=== PATIENT | male | born 1955 | race Caucasian/White ===

== ENCOUNTER 2017-07-07 14:44 | Observation (INO) | payer OTHER ==
[~2017-07-07] VITALS: Ht 175.3 cm; Wt 84.1 kg
[2017-07-07] VITALS (8 sets, daily range): BP systolic 122–175; BP diastolic 66–83; PULSE 53–74; RESP 16–18; TEMP 97.8–98.7; O2SAT 98–99
[~2017-07-07 14:44] MED LIST: ASPI81 PO; ATOR40TA49 PO; KETO2%T TOP; METO25 PO; VENTAER INH
[2017-07-07 15:45] LABS: AUTOMATED NEUTROPHIL # 5.5 TH/MM3 (1.8-7.7); BASOPHIL % 0.6 % (0.0-2.0); EOSINOPHIL # 0.2 TH/MM3 (0-0.4); EOSINOPHIL % 2.7 % (0.0-4.0); HEMATOCRIT 42.8 % (39.0-51.0); HEMOGLOBIN 14.4 GM/DL (13.0-17.0); LYMPH % 22.7 % (9.0-44.0); LYMPHOCYTE # 1.9 TH/MM3 (1.0-4.8); MEAN CELL VOLUME 95.4 FL (80.0-100.0); MEAN CORPUSCULAR HGB CONC 33.5 % (32.0-36.0); MEAN PLATELET VOLUME 7.8 FL (7.0-11.0); MONO % 8.7 % (0.0-8.0); MONOCYTE # 0.7 TH/MM3 (0-0.9); NEUT % 65.3 % (16.0-70.0); PLATELET COUNT 269 TH/MM3 (150-450); RED BLOOD COUNT 4.49 MIL/MM3 (4.50-5.90); RED CELL DISTRIBUTION WIDTH 13.7 % (11.6-17.2); WHITE BLOOD COUNT 8.4 TH/MM3 (4.0-11.0)
--- NOTE | 2017-07-07 15:50 | RADRPT ---
EXAM DATE/TIME: 07/07/2017 15:31 [facility] COMPARISON: No previous studies available for comparison. INDICATIONS : Left sided chest pain started this morning MEDICAL HISTORY : Myocardial infarction. MD 10 years ago SURGICAL HISTORY : None. ENCOUNTER: Initial ACUITY: 1 day PAIN SCORE: 8/10 LOCATION: Bilateral chest FINDINGS: PA and lateral views of the chest demonstrate the lungs to be symmetrically aerated without evidence of mass, infiltrate or effusion. The cardiomediastinal contours are unremarkable. Osseous structure s are intact. CONCLUSION: 1. No acute cardiopulmonary disease. Eitan Donis MD on July 07, 2017 at 15:48 Board Certified Radiologist. This report was verified electronically.
[2017-07-07 15:54] LABS: PROTHROMBIN TIME - PATIENT 9.7 SEC (9.8-11.6)
[2017-07-07 16:03] LABS: BICARBONATE 28.2 MEQ/L (21.0-32.0); BLOOD UREA NITROGEN 20 MG/DL (7-18); CALCIUM 9.2 MG/DL (8.5-10.1); CHLORIDE 105 MEQ/L (98-107); CREATININE 1.17 MG/DL (0.60-1.30); GLOMERULAR FILTRATION RATE 63 ML/MIN (>89); GLUCOSE,RANDOM 108 MG/DL (74-106); MAGNESIUM 2.4 MG/DL (1.5-2.5); SODIUM (NA) 142 MEQ/L (136-145)
[2017-07-07 16:07] LABS: TROPONIN I LESS THAN 0.02 NG/ML (0.02-0.05)
[2017-07-07] MEDS ORDERED: METO25TA3 PO (18:17)
[2017-07-07] MEDS ORDERED: ASPI-516 PO (18:17)
[2017-07-07] MEDS ORDERED: ASPIRIN 325 MG TAB PO ONE (19:00)
--- NOTE | 2017-07-07 19:01 | PD ---
HPI Chief Complaint: Chest Pain Time Seen by Provider: 18:49 Travel History International Travel<30 days: No Contact w/Intl Traveler<30days: No Traveled to known affect area: No History of Present Illness HPI 61-year-old male complains of chest pain. Patient states that the chest pain started this morning. Patient states that the pain aching pain and sharp pain started on the left chest with radiation the left shoulder and left neck and left upper back. Patient denies any palpitation nausea diaphoresis. Patient denies any coughing congestion fever chills. Patient has history of CAD status post AL with stent placement 10 years ago. Patient has history hypertension and hyperlipidemia. Patient denies history diabetes. Patient quit smoking 9 years ago. Patient denies family history of heart disease. On a scale of 1-10 the pain is a 5. Patient complains of shortness of breath with chest pain. PFSH Past Medical History Arthritis: No Asthma: No Autoimmune Disease: No Blood Disorders: No Anxiety: No Depression: No Heart Rhythm Problems: No Cancer: No Cardiovascular Problems: No High Cholesterol: Yes Chemotherapy: No Chest Pain: No Congestive Heart Failure: No COPD: No Cerebrovascular Accident: No Diabetes: No Diminished Hearing: No Endocrine: No Gastrointestinal Disorders: Yes GERD: Yes Glaucoma: No Genitourinary: No Headaches: No Hepatitis: No Hiatal Hernia: No Hypertension: Yes Immune Disorder: No Kidney Stones: No Musculoskeletal: No Neurologic: No Psychiatric: No Reproductive: No Respiratory: No Migraines: No Myocardial Infarction: No Radiation Therapy: No Renal Failure: No Seizures: No Sickle Cell Disease: No Sleep Apnea: No Thyroid Disease: No Ulcer: No Tetanus Vaccination: > 5 Years Influenza Vaccination: No Past Surgical History Abdominal Surgery: No AICD: No Appendectomy: No Arteriovenous Shunt: No Cardiac Surgery: Yes (stent ) Cholecystectomy: No Ear Surgery: No Endocrine Surgery: No Eye Surgery: No Genitourinary Surgery: Yes (HEMORROIDS) Gynecologic Surgery: No Insulin Pump: No Joint Replacement: No Oral Surgery: No Pacemaker: No Thoracic Surgery: No Other Surgery: Yes (DEVIATED SEPTUM AT AGE 21) Social History Alcohol Use: Yes (WINE OR BEER DAILY) Tobacco Use: No (quit 4 years ago) Substance Use: No Allergies-Medications (Allergen,Severity, Reaction): Coded Allergies: No Known Allergies (Verified Adverse Reaction, Unknown, 07/07/17) Reported Meds & Prescriptions Reported Meds & Active Scripts Active Reported Aspirin 81 Mg Chew 81 Mg PO DAILY Metoprolol Tartrate 25 Mg Tab 25 Mg PO BID Review of Systems General / Constitutional: No: Fever Eyes: No: Visual changes HENT: No: Headaches Cardiovascular: Positive: Chest Pain or Discomfort Respiratory: Positive: Shortness of Breath Gastrointestinal: No: Abdominal Pain Genitourinary: No: Dysuria Musculoskeletal: No: Pain Skin: No Rash Neurologic: No: Weakness Psychiatric: No: Depression Endocrine: No: Polydipsia Hematologic/Lymphatic: No: Easy Bruising Physical Exam Narrative GENERAL: Well-nourished, well-developed patient. SKIN: Focused skin assessment warm/dry. HEAD: Normocephalic. EYES: No scleral icterus. No injection or drainage. NECK: Supple, trachea midline. No JVD or lymphadenopathy. CARDIOVASCULAR: Regular rate and rhythm without murmurs, gallops, or rubs. RESPIRATORY: Breath sounds equal bilaterally. No accessory muscle use. GASTROINTESTINAL: Abdomen soft, non-tender, nondistended. MUSCULOSKELETAL: No cyanosis, or edema. BACK: Nontender without obvious deformity. No CVA tenderness. Neurologic exam normal. Data Data Last Documented VS Vital Signs Date Time Temp Pulse Resp B/P (MAP) Pulse Ox O2 Delivery O2 Flow Rate FiO2 07/07/17 18:22 97.8 60 17 175/66 (102) 99 Room Air Orders Orders Electrocardiogram (07/07/17 14:55) Basic Metabolic Panel (Bmp) (07/07/17 14:55) Ckmb (Isoenzyme) Profile (07/07/17 14:55) Complete Blood Count With Diff (07/07/17 14:55) Magnesium (Mg) (07/07/17 14:55) Prothrombin Time / Inr (Pt) (07/07/17 14:55) Act Partial Throm Time (Ptt) (07/07/17 14:55) Troponin I (07/07/17 14:55) Chest, Pa & Lat (07/07/17 14:55) Labs Laboratory Tests Test 07/07/17 15:10 White Blood Count 8.4 TH/MM3 Red Blood Count 4.49 MIL/MM3 Hemoglobin 14.4 GM/DL Hematocrit 42.8 % Mean Corpuscular Volume 95.4 FL Mean Corpuscular Hemoglobin 32.0 PG Mean Corpuscular Hemoglobin Concent 33.5 % Red Cell Distribution Width 13.7 % Platelet Count 269 TH/MM3 Mean Platelet Volume 7.8 FL Neutrophils (%) (Auto) 65.3 % Lymphocytes (%) (Auto) 22.7 % Monocytes (%) (Auto) 8.7 % Eosinophils (%) (Auto) 2.7 % Basophils (%) (Auto) 0.6 % Neutrophils # (Auto) 5.5 TH/MM3 Lymphocytes # (Auto) 1.9 TH/MM3 Monocytes # (Auto) 0.7 TH/MM3 Eosinophils # (Auto) 0.2 TH/MM3 Basophils # (Auto) 0.0 TH/MM3 CBC Comment DIFF FINAL Differential Comment Prothrombin Time 9.7 SEC Prothromb Time International Ratio 1.0 RATIO Activated Partial Thromboplast Time 25.2 SEC Blood Urea Nitrogen 20 MG/DL Creatinine 1.17 MG/DL Random Glucose 108 MG/DL Calcium Level 9.2 MG/DL Magnesium Level 2.4 MG/DL Sodium Level 142 MEQ/L Potassium Level 3.7 MEQ/L Chloride Level 105 MEQ/L Carbon Dioxide Level 28.2 MEQ/L Anion Gap 9 MEQ/L Estimat Glomerular Filtration Rate 63 ML/MIN Total Creatine Kinase 84 U/L Troponin I LESS THAN 0.02 NG/ML MDM Medical Decision Making Medical Screen Exam Complete: Yes Emergency Medical Condition: Yes Interpretation(s) EKG shows sinus rhythm nonspecific ST-T wave change. Last Impressions Chest X-Ray 07/07/17 1455 Signed Impressions: Service Date/Time: Friday, July 07, 2017 15:31 - CONCLUSION: 1. No acute cardiopulmonary disease. Eitan Donis MD 1900 PM. Cardiac enzymes are normal. Differential Diagnosis Differential diagnosis including muscular skeletal, angina, AL, PE, pneumothorax. Narrative Course 61-year-old male with chest pain. Aspirin 325 mg p.o. given. Patient will be admitted to the chest pain center. Diagnosis Primary Impression: Chest pain Qualified Codes: R07.9 - Chest pain, unspecified Admitting Information Admitting Physician Requests: Jason Ley MD Jul 07, 2017 19:01
[2017-07-07] MEDS ORDERED: SODIUM CHLORIDE 0.9% FLUSH 10 ML FLUSH IV FLUSH PRN (19:15)
[2017-07-07] MEDS ORDERED: ACETAMINOPHEN 500 MG CPLT PO PRN (19:15)
[2017-07-07] MEDS ORDERED: METOPROLOL TARTRATE 25 MG TAB PO ONE (19:15)
[2017-07-07] MEDS ORDERED: ONDANSETRON HCL 4 MG/2 ML VIAL IV PUSH PRN (19:15)
[2017-07-07] MEDS ORDERED: KETOROLAC TROMETHAMINE 30 MG/ML (IVP) VIAL IV PUSH ONE (19:15)
[2017-07-07 19:53] LABS: TROPONIN I LESS THAN 0.02 NG/ML (0.02-0.05)
--- NOTE | 2017-07-07 20:14 | EKG ---
Date Performed: 07/07/2017 Time Performed: 15:09:41 PTAGE: 61 years EKG: Sinus rhythm SEPTAL MYOCARDIAL INFARCTION ABNORMAL ECG No significant change from prior electrocardiogram. PREVIOUS TRACING : 03/29/2010 14.29 DOCTOR: Elian Carcamo Interpretating Date/Time 07/07/2017 20:13:01
[2017-07-07] MEDS ORDERED: SODIUM CHLORIDE 0.9% FLUSH 10 ML FLUSH IV FLUSH SCH (21:00)
[2017-07-07 23:28] LABS: TROPONIN I LESS THAN 0.02 NG/ML (0.02-0.05)
[2017-07-08 00:55] VITALS: BP 125/66; PULSE 54; RESP 16; TEMP 98.3; O2SAT 97
--- NOTE | 2017-07-08 04:49 | EKG ---
Date Performed: 07/07/2017 Time Performed: 19:18:27 PTAGE: 61 years EKG: SINUS BRADYCARDIA POSSIBLE SEPTAL MYOCARDIAL INFARCTION BORDERLINE ECG Compared to prior el ectrocardiogram, axis has rotated. PREVIOUS TRACING : 07/07/2017 15.09 DOCTOR: Elian Carcamo Interpretating Date/Time 07/08/2017 04:48:14
[2017-07-08 05:08] VITALS: BP 108/58; PULSE 61; RESP 16; TEMP 97.5; O2SAT 93
[2017-07-08 07:05] VITALS: PULSE 55
[2017-07-08 08:30] VITALS: BP 146/75; PULSE 60; RESP 18; TEMP 97.6; O2SAT 95
--- NOTE | 2017-07-08 17:05 | EKG ---
Date Performed: 07/07/2017 Time Performed: 22:30:14 PTAGE: 61 years EKG: SINUS BRADYCARDIA LOW QRS VOLTAGE IN PRECORDIAL LEADS SEPTAL MYOCARDIAL INFARCTION ABNORMAL ECG Since PREVIOUS TRACING , no significant change noted PREVIOUS TRACIN07/07/2017 19.18 DOCTOR: Shaista Blackwood Interpretating Date/Time 07/08/2017 17:05:17
== END 2017-07-08 10:00 | disposition left against medical advice (07) ==
LOC: NEPE 14:44 → NEDH 19:19 → NEPGCP 20:07
PROVIDERS: ADMIT Internal Medicine Cardiovascular Disease; ATTEND Internal Medicine Cardiovascular Disease
DX: R07.9 Chest pain, unspecified (principal); R00.1 Bradycardia, unspecified; R94.31 Abnormal electrocardiogram [ECG] [EKG]; I10 Essential (primary) hypertension; I25.2 Old myocardial infarction; E78.00 Pure hypercholesterolemia, unspecified; K21.9 Gastro-esophageal reflux disease without esophagitis; Z79.82 Long term (current) use of aspirin; Z87.891 Personal history of nicotine dependence; Z95.5 Presence of coronary angioplasty implant and graft
CPT/HCPCS: 71046; 80048; 82550; 83735; 84484; 85025; 85610; 85730; 93005; 96374; 99285; G0378; J1885

== ENCOUNTER 2017-08-13 20:39 | Emergency (ER) | payer OTHER ==
[~2017-08-13 20:39] MED LIST changes: +ASPI-516 PO; -ASPI81 PO; -ATOR40TA49 PO; -KETO2%T TOP; -METO25 PO; +METO25TA3 PO; -VENTAER INH
[2017-08-13 21:06] VITALS: BP 143/82; PULSE 100; RESP 16; TEMP 102.6; O2SAT 97
[2017-08-13] MEDS ORDERED: SODIUM CHLOR 0.9% 1000 ML INJ 1,000 ML IV SCH ×2 (21:23)
--- NOTE | 2017-08-13 21:26 | PD ---
HPI Chief Complaint: Complaint Time Seen by Provider: 21:13 Travel History International Travel<30 days: No Contact w/Intl Traveler<30days: No Traveled to known affect area: No History of Present Illness HPI This is a 61-year-old male with past medical history only significant for hypertension hyperlipidemia. He presents for evaluation of hematuria, lower abdominal pain and fevers. He reports that since yesterday he has had gross hematuria. He reports increased urinary frequency. He reports that sometimes he feels like he needs to have a bowel movement he urinates again. He reports that tonight he developed fevers. His temperature in triage is 102.6 and this is what prompted evaluation. He denies any rectal pain. He denies any testicular scrotal pain, urethral discharge, cough, congestion, sore throat, nausea or vomiting, diarrhea or constipation. He is sexually active with one female partner. Circumcised. Denies any history of abdominal surgeries. He has no other complaints at this time. PFSH Past Medical History Arthritis: No Asthma: No Autoimmune Disease: No Blood Disorders: No Anxiety: No Depression: No Heart Rhythm Problems: No Cancer: No Cardiac Catheterization: Yes (june 2008) High Cholesterol: Yes Chemotherapy: No Chest Pain: No Congestive Heart Failure: No COPD: No Cerebrovascular Accident: No Diabetes: No Diminished Hearing: No Endocrine: No Gastrointestinal Disorders: Yes GERD: Yes Glaucoma: No Genitourinary: No Headaches: No Hepatitis: No Hiatal Hernia: No Hypertension: Yes Immune Disorder: No Kidney Stones: No Musculoskeletal: No Neurologic: No Psychiatric: No Reproductive: No Respiratory: No Immunizations Current: Yes Migraines: No Myocardial Infarction: No Radiation Therapy: No Renal Failure: No Seizures: No Sickle Cell Disease: No Sleep Apnea: No Thyroid Disease: No Ulcer: No Past Surgical History Abdominal Surgery: No AICD: No Appendectomy: No Arteriovenous Shunt: No Cardiac Surgery: Yes (stent ) Cholecystectomy: No Ear Surgery: No Endocrine Surgery: No Eye Surgery: No Genitourinary Surgery: Yes (HEMORROIDS) Gynecologic Surgery: No Insulin Pump: No Joint Replacement: No Oral Surgery: No Pacemaker: No Thoracic Surgery: No Other Surgery: Yes (DEVIATED SEPTUM AT AGE 21) Social History Alcohol Use: Yes (WINE OR BEER DAILY) Tobacco Use: No Substance Use: No Allergies-Medications (Allergen,Severity, Reaction): Coded Allergies: nitroglycerin (Verified Adverse Reaction, Severe, Hypotension, 4/9/18) pt states that his bp went really low and they turned him upside down No Known Allergies (Verified Adverse Reaction, Unknown, 07/07/17) Reported Meds & Prescriptions Reported Meds & Active Scripts Active Ibuprofen 600 Mg Tab 600 Mg PO Q6H PRN Levaquin (Levofloxacin) 750 Mg Tablet 750 Mg PO DAILY Reported Aspirin 81 Mg Chew 81 Mg PO DAILY Metoprolol Tartrate 25 Mg Tab 25 Mg PO BID Review of Systems Except as stated in HPI: all other systems reviewed are Neg Physical Exam Narrative GENERAL: Well-developed well-nourished male no acute distress SKIN: Warm and dry. HEAD: Atraumatic. Normocephalic. EYES: Pupils equal and round. No scleral icterus. No injection or drainage. ENT: No nasal bleeding or discharge. Mucous membranes pink and moist. NECK: Trachea midline. No JVD. CARDIOVASCULAR: Regular rate and rhythm. No murmur appreciated. RESPIRATORY: No accessory muscle use. Clear to auscultation. Breath sounds equal bilaterally. GASTROINTESTINAL: Abdomen soft, mild suprapubic tenderness without guarding. examination reveals descended testicles, nontender, no urethral discharge, no scrotal edema. Rectal examination reveals no evidence of perirectal abscess. MUSCULOSKELETAL: No obvious deformities. No clubbing. No cyanosis. No edema. NEUROLOGICAL: Awake and alert. No obvious cranial nerve deficits. Motor grossly within normal limits. Normal speech. Data Data Last Documented VS Orders Orders Sepsis Workup Initiated (08/13/17 ) Complete Blood Count With Diff (08/13/17 21:23) Comprehensive Metabolic Panel (08/13/17 21:23) Lactic Acid Sepsis Protocol (08/13/17 21:23) Urinalysis - C+S If Indicated (08/13/17 21:23) Blood Culture (08/13/17 21:23) Blood Glucose (08/13/17 21:23) Ecg Monitoring (08/13/17 21:23) Iv Access Insert/Monitor (08/13/17 21:23) Oximetry (08/13/17 21:23) Oxygen Administration (08/13/17 21:23) Ct Abd/Pel W Iv Contrast(Rout) (08/13/17 21:23) Gc And Chlamydia Pcr (08/13/17 21:23) Sodium Chlor 0.9% 1000 Ml Inj (Ns 1000 M (08/13/17 21:23) Sodium Chlor 0.9% 1000 Ml Inj (Ns 1000 M (08/13/17 21:23) Ketorolac Inj (Toradol Inj) (08/13/17 21:30) Urine Culture (08/13/17 21:20) Levofloxacin 750 Mg Premix Inj (Levaquin (08/13/17 22:15) Iohexol 350 Inj (Omnipaque 350 Inj) (08/13/17 23:50) Ed Discharge Order (08/14/17 00:34) Labs Laboratory Tests Test 08/13/17 21:20 08/13/17 21:30 Urine Color YELLOW Urine Turbidity HAZY Urine pH 5.0 Urine Specific [place] 1.019 Urine Protein 30 mg/dL Urine Glucose (UA) NEG mg/dL Urine Ketones NEG mg/dL Urine Occult Blood LARGE Urine Nitrite POS Urine Bilirubin NEG Urine Urobilinogen LESS THAN 2.0 MG/DL Urine Leukocyte Esterase MOD Urine RBC /hpf Urine WBC 25 /hpf Urine WBC Clumps RARE Urine Bacteria RARE /hpf Urine Mucus FEW /lpf Microscopic Urinalysis Comment CATH-CULTURE IND Chlamydia trachomatis DNA (PCR) NOT DETECTED Neisseria gonorrhoeae DNA (PCR) NOT DETECTED White Blood Count 11.8 TH/MM3 Red Blood Count 4.53 MIL/MM3 Hemoglobin 14.3 GM/DL Hematocrit 42.5 % Mean Corpuscular Volume 93.8 FL Mean Corpuscular Hemoglobin 31.6 PG Mean Corpuscular Hemoglobin Concent 33.7 % Red Cell Distribution Width 13.9 % Platelet Count 221 TH/MM3 Mean Platelet Volume 7.7 FL Neutrophils (%) (Auto) 86.0 % Lymphocytes (%) (Auto) 6.1 % Monocytes (%) (Auto) 6.8 % Eosinophils (%) (Auto) 0.9 % Basophils (%) (Auto) 0.2 % Neutrophils # (Auto) 10.2 TH/MM3 Lymphocytes # (Auto) 0.7 TH/MM3 Monocytes # (Auto) 0.8 TH/MM3 Eosinophils # (Auto) 0.1 TH/MM3 Basophils # (Auto) 0.0 TH/MM3 CBC Comment DIFF FINAL Differential Comment Blood Urea Nitrogen 17 MG/DL Creatinine 0.94 MG/DL Random Glucose 103 MG/DL Total Protein 7.9 GM/DL Albumin 3.8 GM/DL Calcium Level 9.1 MG/DL Alkaline Phosphatase 72 U/L Aspartate Amino Transf (AST/SGOT) 18 U/L Alanine Aminotransferase (ALT/SGPT) 28 U/L Total Bilirubin 0.7 MG/DL Sodium Level 138 MEQ/L Potassium Level 4.0 MEQ/L Chloride Level 104 MEQ/L Carbon Dioxide Level 23.0 MEQ/L Anion Gap 11 MEQ/L Estimat Glomerular Filtration Rate 82 ML/MIN Lactic Acid Level 0.9 mmol/L MDM Medical Decision Making Medical Screen Exam Complete: Yes Emergency Medical Condition: Yes Medical Record Reviewed: Yes Differential Diagnosis Prostatitis, cystitis, pyelonephritis, rectal vesicular fistula, rectal abscess , sepsis Narrative Course The patient appears well but he is febrile. The patient was placed on ECG monitoring pulse oximetry. Lab work, urinalysis, CT abdomen and pelvis have been ordered. The patient was given IV fluids. CBC reveals WBC count of 11.8 otherwise unremarkable. CMP is unremarkable. Lactic acid within normal limits. Urinalysis reveals WBCs, RBCs, positive nitrites, consistent with urinary tract infection. IV Levaquin initiated. At the end of my shift the patient was signed out pending CT imaging, potentially discharging home on an oral fluoroquinolone. Scripts Ibuprofen (Ibuprofen) 600 Mg Tab 600 MG PO Q6H Y for Pain/Inflammation, #20 TAB 0 Refills Prov: Moose Dougherty MD 08/14/17 Levofloxacin (Levaquin) 750 Mg Tablet 750 MG PO DAILY for Infection, #5 TAB 0 Refills Prov: Moose Dougherty MD 08/14/17 Luis F Regan August 13, 2017 21:26
[2017-08-13] MEDS ORDERED: KETOROLAC TROMETHAMINE 30 MG/ML (IVP) VIAL IVP ONE (21:30)
[2017-08-13 21:39] VITALS: RESP 16; O2SAT 97
[2017-08-13 21:54] VITALS: BP 142/75; PULSE 82; RESP 16; O2SAT 98
[2017-08-13 21:56] LABS: BACTERIA, URINE RARE /hpf; BILIRUBIN, URINE NEG (NEG); BLOOD, URINE LARGE (NEG); GLUCOSE,URINE NEG (NEG); KETONE, URINE NEG (NEG); MUCUS URINE FEW /lpf (OCC); NITRITE,URINE POS (NEG); URINE COLOR YELLOW (YELLW/STRAW); URINE LEUKOCYTE ESTERASE MOD (NEG); WHITE BLOOD CELL CLUMPS RARE
[2017-08-13 21:58] LABS: AUTOMATED NEUTROPHIL # 10.2 TH/MM3 (1.8-7.7); BASOPHIL % 0.2 % (0.0-2.0); EOSINOPHIL # 0.1 TH/MM3 (0-0.4); EOSINOPHIL % 0.9 % (0.0-4.0); HEMATOCRIT 42.5 % (39.0-51.0); HEMOGLOBIN 14.3 GM/DL (13.0-17.0); LYMPH % 6.1 % (9.0-44.0); LYMPHOCYTE # 0.7 TH/MM3 (1.0-4.8); MEAN CELL VOLUME 93.8 FL (80.0-100.0); MEAN CORPUSCULAR HEMOGLOBIN 31.6 PG (27.0-34.0); MEAN CORPUSCULAR HGB CONC 33.7 % (32.0-36.0); MEAN PLATELET VOLUME 7.7 FL (7.0-11.0); MONO % 6.8 % (0.0-8.0); MONOCYTE # 0.8 TH/MM3 (0-0.9); PLATELET COUNT 221 TH/MM3 (150-450); RED BLOOD COUNT 4.53 MIL/MM3 (4.50-5.90); RED CELL DISTRIBUTION WIDTH 13.9 % (11.6-17.2); WHITE BLOOD COUNT 11.8 TH/MM3 (4.0-11.0)
[2017-08-13 22:08] LABS: ALBUMIN 3.8 GM/DL (3.4-5.0); AST (GOT) 18 U/L (15-37); BLOOD UREA NITROGEN 17 MG/DL (7-18); CALCIUM 9.1 MG/DL (8.5-10.1); CHLORIDE 104 MEQ/L (98-107); CREATININE 0.94 MG/DL (0.60-1.30); GLOMERULAR FILTRATION RATE 82 ML/MIN (>89); GLUCOSE,RANDOM 103 MG/DL (74-106); SODIUM (NA) 138 MEQ/L (136-145)
[2017-08-13 22:12] LABS: ALKALINE PHOSPHATASE 72 U/L (45-117); ALT (GPT) 28 U/L (12-78); TOTAL BILIRUBIN ADULT 0.7 MG/DL (0.2-1.0); TOTAL PROTEIN 7.9 GM/DL (6.4-8.2)
[2017-08-13] MEDS ORDERED: LEVOFLOXACIN 750 MG PREMIX INJ 150 ML IV ONE (22:15)
--- NOTE | 2017-08-13 23:22 | PD ---
Physical Exam Date Seen by Provider: August 13, 2017 Time Seen by Provider: 23:22 Narrative Patient is signed out to me at 11 PM I am following up the CAT scan to see if he has any indications of prostatitis patient has a UTI nitrate positive is given Levaquin IV will be sent home on Levaquin if CAT scan indicates that his prostatitis I will give him Levaquin p.o. daily 21 days any urology follow-up awaiting the results of the CAT scan Data Data Last Documented VS Orders Orders Sepsis Workup Initiated (08/13/17 ) Complete Blood Count With Diff (08/13/17 21:23) Comprehensive Metabolic Panel (08/13/17 21:23) Lactic Acid Sepsis Protocol (08/13/17:23) Urinalysis - C+S If Indicated (08/13/17:) Blood Culture (08/13/17 21:23) Blood Glucose (08/13/17:23) Ecg Monitoring (08/13/17:23) Iv Access Insert/Monitor (08/13/17:) Oximetry (08/13/17:23) Oxygen Administration (08/13/17 21:23) Ct Abd/Pel W Iv Contrast(Rout) (08/13/17 21:23) Gc And Chlamydia Pcr (08/13/17 21:23) Sodium Chlor 0.9% 1000 Ml Inj (Ns 1000 M (08/13/17 21:23) Sodium Chlor 0.9% 1000 Ml Inj (Ns 1000 M (08/13/17 21:23) Ketorolac Inj (Toradol Inj) (08/13/17 21:30) Urine Culture (08/13/17 21:20) Levofloxacin 750 Mg Premix Inj (Levaquin (08/13/17 22:15) Iohexol 350 Inj (Omnipaque 350 Inj) (08/13/17 23:50) Ed Discharge Order (08/14/17 00:34) Labs Laboratory Tests Test 08/13/17 21:20 08/13/17 21:30 Urine Color YELLOW Urine Turbidity HAZY Urine pH 5.0 Urine Specific [place] 1.019 Urine Protein 30 mg/dL Urine Glucose (UA) NEG mg/dL Urine Ketones NEG mg/dL Urine Occult Blood LARGE Urine Nitrite POS Urine Bilirubin NEG Urine Urobilinogen LESS THAN 2.0 MG/DL Urine Leukocyte Esterase MOD Urine RBC /hpf Urine WBC 25 /hpf Urine WBC Clumps RARE Urine Bacteria RARE /hpf Urine Mucus FEW /lpf Microscopic Urinalysis Comment CATH-CULTURE IND Chlamydia trachomatis DNA (PCR) NOT DETECTED Neisseria gonorrhoeae DNA (PCR) NOT DETECTED White Blood Count 11.8 TH/MM3 Red Blood Count 4.53 MIL/MM3 Hemoglobin 14.3 GM/DL Hematocrit 42.5 % Mean Corpuscular Volume 93.8 FL Mean Corpuscular Hemoglobin 31.6 PG Mean Corpuscular Hemoglobin Concent 33.7 % Red Cell Distribution Width 13.9 % Platelet Count 221 TH/MM3 Mean Platelet Volume 7.7 FL Neutrophils (%) (Auto) 86.0 % Lymphocytes (%) (Auto) 6.1 % Monocytes (%) (Auto) 6.8 % Eosinophils (%) (Auto) 0.9 % Basophils (%) (Auto) 0.2 % Neutrophils # (Auto) 10.2 TH/MM3 Lymphocytes # (Auto) 0.7 TH/MM3 Monocytes # (Auto) 0.8 TH/MM3 Eosinophils # (Auto) 0.1 TH/MM3 Basophils # (Auto) 0.0 TH/MM3 CBC Comment DIFF FINAL Differential Comment Blood Urea Nitrogen 17 MG/DL Creatinine 0.94 MG/DL Random Glucose 103 MG/DL Total Protein 7.9 GM/DL Albumin 3.8 GM/DL Calcium Level 9.1 MG/DL Alkaline Phosphatase 72 U/L Aspartate Amino Transf (AST/SGOT) 18 U/L Alanine Aminotransferase (ALT/SGPT) 28 U/L Total Bilirubin 0.7 MG/DL Sodium Level 138 MEQ/L Potassium Level 4.0 MEQ/L Chloride Level 104 MEQ/L Carbon Dioxide Level 23.0 MEQ/L Anion Gap 11 MEQ/L Estimat Glomerular Filtration Rate 82 ML/MIN Lactic Acid Level 0.9 mmol/L [facility] Medical Record Reviewed: Yes Supervised Visit with [place]: Yes Differential Diagnosis UTI versus prostatitis versus pyelonephritis versus other causes of hematuria Narrative Course CAT scan does not show any obvious prostatitis no obvious pathology urine is infected diagnosis is UTI with hematuria follow-up Dr. Ramos urologist outpatient Levaquin for 7 days Diagnosis Primary Impression: UTI (urinary tract infection) Qualified Codes: N30.01 - Acute cystitis with hematuria Referrals: Tello Ramos DO Patient Instructions: General Instructions, Urinary Tract Infection in Men (ED) Additional Instruction: Take the antibiotic for 5 more days and follow up with Dr Ramos in 2 days , Call for an appointment Scripts Ibuprofen (Ibuprofen) 600 Mg Tab 600 MG PO Q6H Y for Pain/Inflammation, #20 TAB 0 Refills Prov: Moose Dougherty MD 08/14/17 Levofloxacin (Levaquin) 750 Mg Tablet 750 MG PO DAILY for Infection, #5 TAB 0 Refills Prov: Moose Dougherty MD 08/14/17 Disposition: 01 DISCHARGE HOME Condition: Good Moose Dougherty MD August 13, 2017 23:22
[2017-08-13] MEDS ORDERED: IOHEXOL 350 MG/ML 10 ML VIAL (for RAD DIAG) IVCONTRAST ONE (23:50)
--- NOTE | 2017-08-14 00:03 | RADRPT ---
EXAM DATE/TIME: 08/13/2017 23:40 [facility] COMPARISON: No previous studies available for comparison. INDICATIONS : Lower abdominal pain, hematuria and fever. IV CONTRAST: 100 cc Omnipaque 350 (iohexol) IV ORAL CONTRAST: No oral contrast ingested. RADIATION DOSE: 8.83 CTDIvol (mGy) MEDICAL HISTORY : Hypertension. Myocardial infarction. Gastroesophageal reflux disease. SURGICAL HISTORY : Coronary artery stent. ENCOUNTER: Initial ACUITY: 1 day PAIN SCALE: 8/10 LOCATION: Bilateral lower quadrant TECHNIQUE: Volumetric scanning of the abdomen and pelvis was performed. Using automated exposure control and ad justment of the mA and/or kV according to patient size, radiation dose was kept as low as reasonably achievable to obtain optimal diagnostic quality images. DICOM format image data is available electro nically for review and comparison. FINDINGS: LOWER LUNGS: The visualized lower lungs are clear. LIVER: Homogeneous density. A tiny simple cyst is seen adjacent to the gallbladder fossa. There is no dilat ion of the biliary tree. No calcified gallstones. SPLEEN: Normal size without lesion. PANCREAS: Within normal limits. KIDNEYS: Normal in size and shape. 18 mm cortical cyst involving the upper pole of the right kidney. There is no mass, stone or hydronephrosis. ADRENAL GLANDS: Within normal limits. VASCULAR: Diffuse calcified atherosclerotic plaque. There is no aortic aneurysm. BOWEL/MESENTERY: Scattered colonic diverticuli without acute inflammation. Appendix is normal by CT criteria. The stom ach, small bowel, and colon demonstrate no acute abnormality. There is no free intraperitoneal air o r fluid. ABDOMINAL WALL: Within normal limits. RETROPERITONEUM: There is no lymphadenopathy. BLADDER: No wall thickening or mass. REPRODUCTIVE: Within normal limits. INGUINAL: There is no lymphadenopathy or hernia. MUSCULOSKELETAL: Within normal limits for patient age. CONCLUSION: 1. No acute abnormality. 2. Colonic diverticulosis. 3. Hepatic and right renal cyst. Richard Vaughan Jr., MD on August 13, 2017 at 23:56 Board Certified Radiologist. This report was verified electronically.
[2017-08-14] MEDS ORDERED: LEVA750T9 PO (00:39)
[2017-08-14] MEDS ORDERED: IBUP-232 PO (00:39)
[2017-08-14 00:44] VITALS: BP 130/75; PULSE 80; RESP 16; O2SAT 97
== END 2017-08-14 01:02 | disposition home or self-care (01) ==
LOC: NEPE 20:39
DX: N30.01 Acute cystitis with hematuria (principal); B96.20 Unspecified Escherichia coli [E. coli] as the cause of diseases classified elsewhere; K57.30 Diverticulosis of large intestine without perforation or abscess without bleeding; N28.1 Cyst of kidney, acquired; I10 Essential (primary) hypertension; E78.00 Pure hypercholesterolemia, unspecified; K21.9 Gastro-esophageal reflux disease without esophagitis; Z95.5 Presence of coronary angioplasty implant and graft; Z79.899 Other long term (current) drug therapy
CPT/HCPCS: 74177; 80053; 81001; 83605; 85025; 87040; 87077; 87086; 87186; 87491; 87591; 96374; 96375; 99285; J1885; J1956; J7030; Q9967

== ENCOUNTER 2017-08-30 11:54 | Emergency (ER) | payer OTHER ==
[~2017-08-30] VITALS: Ht 172.7 cm; Wt 80.0 kg
[~2017-08-30 11:54] MED LIST changes: +IBUP-232 PO; +LEVA750T9 PO
[2017-08-30 12:03] VITALS: BP 131/79; PULSE 67; RESP 16; TEMP 98.2; O2SAT 97
[2017-08-30] MEDS ORDERED: ATOR40TA16 PO (12:17)
--- NOTE | 2017-08-30 12:40 | PD ---
HPI Chief Complaint: Edema Time Seen by Provider: 12:09 Travel History International Travel<30 days: No Contact w/Intl Traveler<30days: No Traveled to known affect area: No History of Present Illness HPI 61-year-old male the presents to the ED for evaluation of edema to the left leg and pain in the calf. Per patient he has had this for about 8 days. Per patient is presently getting worse. Apparently 1 of the friends of the family is a nurse and recommended that he takes ibuprofen and aspirin to help with the symptoms. Denies any recent travel. He does have a history of heart disease. No history of blood clots. He does have a history of high blood pressure and high cholesterol and takes atorvastatin as well as metoprolol. Denies ever having to like this before. Pain is mostly to the cough but he is noted that he does have swelling to his ankle that is been ongoing for the past 2-3 days. Denies any injury or trauma. Denies anything that could have exacerbated this. Pain per patient is 6 out of 10 and gets worse with movement and with touch. No history of blood clots in himself. History of atrial fibrillation. Allergy to nitroglycerin. PFSH Past Medical History Arthritis: No Asthma: No Autoimmune Disease: No Blood Disorders: No Anxiety: No Depression: No Heart Rhythm Problems: No Cancer: No Cardiac Catheterization: Yes (june 2008) Cardiovascular Problems: Yes High Cholesterol: Yes Chemotherapy: No Chest Pain: No Congestive Heart Failure: No COPD: No Cerebrovascular Accident: No Diabetes: No Diminished Hearing: No Endocrine: No Gastrointestinal Disorders: Yes GERD: Yes Glaucoma: No Genitourinary: No Headaches: No Hepatitis: No Hiatal Hernia: No Hypertension: Yes Immune Disorder: No Kidney Stones: No Musculoskeletal: No Neurologic: No Psychiatric: No Reproductive: No Respiratory: No Immunizations Current: Yes Migraines: No Myocardial Infarction: No Radiation Therapy: No Renal Failure: No Seizures: No Sickle Cell Disease: No Sleep Apnea: No Thyroid Disease: No Ulcer: No Past Surgical History Abdominal Surgery: No AICD: No Appendectomy: No Arteriovenous Shunt: No Cardiac Surgery: Yes (stent ) Cholecystectomy: No Ear Surgery: No Endocrine Surgery: No Eye Surgery: No Genitourinary Surgery: Yes (HEMORROIDS) Gynecologic Surgery: No Insulin Pump: No Joint Replacement: No Oral Surgery: No Pacemaker: No Thoracic Surgery: No Other Surgery: Yes (DEVIATED SEPTUM AT AGE 21) Social History Alcohol Use: Yes (WINE OR BEER DAILY) Tobacco Use: No Substance Use: No Allergies-Medications (Allergen,Severity, Reaction): Coded Allergies: nitroglycerin (Verified Adverse Reaction, Severe, Hypotension, 08/30/17) pt states that his bp went really low and they turned him upside down Reported Meds & Prescriptions Reported Meds & Active Scripts Active Diclofenac Sodium DR (Diclofenac Sodium) 75 Mg Tabdr 75 Mg PO BID PRN Ibuprofen 600 Mg Tab 600 Mg PO Q6H PRN Levaquin (Levofloxacin) 750 Mg Tablet 750 Mg PO DAILY Reported Atorvastatin (Atorvastatin Calcium) 40 Mg Tab 40 Mg PO HS Aspirin 81 Mg Chew 81 Mg PO DAILY Metoprolol Tartrate 25 Mg Tab 25 Mg PO BID Review of Systems Except as stated in HPI: all other systems reviewed are Neg Physical Exam Narrative GENERAL: SKIN: Warm and dry. HEAD: Atraumatic. Normocephalic. EYES: Pupils equal and round. No scleral icterus. No injection or drainage. ENT: No nasal bleeding or discharge. Mucous membranes pink and moist. Tongue is midline. No uvula deviation. NECK: Trachea midline. No JVD. CARDIOVASCULAR: Regular rate and rhythm. No murmurs, S3, S4. RESPIRATORY: No accessory muscle use. Clear to auscultation. Breath sounds equal bilaterally. GASTROINTESTINAL: Abdomen soft, non-tender, nondistended. Hepatic and splenic margins not palpable. MUSCULOSKELETAL: Extremities without clubbing, cyanosis, or edema. No obvious deformities. Full range of motion of the upper and lower extremities bilaterally. 2+ pulses bilaterally. Patient does have a producible cough tenderness on the left, often soft tissue swelling 1+ pitting edema on the left lower extremity. NEUROLOGICAL: Awake and alert. No obvious cranial nerve deficits. Motor grossly within normal limits. Five out of 5 muscle strength in the arms and legs. Normal speech. PSYCHIATRIC: Appropriate mood and affect; insight and judgment normal. Data Data Last Documented VS Vital Signs Date Time Temp Pulse Resp B/P (MAP) Pulse Ox O2 Delivery O2 Flow Rate FiO2 08/30/17 15:07 60 18 137/78 (97) 99 Room Air 08/30/17 12:03 98.2 Orders Orders Us Leg Venous Doppler (08/30/17 ) Complete Blood Count With Diff (08/30/17 14:31) Comprehensive Metabolic Panel (08/30/17 14:31) Blood Culture (08/30/17 14:31) Magnesium (Mg) (08/30/17 14:31) Iv Access Insert/Monitor (08/30/17 14:31) Ed Discharge Order (08/30/17 16:07) Labs Laboratory Tests Test 08/30/17 14:30 White Blood Count 9.2 TH/MM3 Red Blood Count 4.28 MIL/MM3 Hemoglobin 13.7 GM/DL Hematocrit 40.8 % Mean Corpuscular Volume 95.3 FL Mean Corpuscular Hemoglobin 32.1 PG Mean Corpuscular Hemoglobin Concent 33.7 % Red Cell Distribution Width 14.2 % Platelet Count 257 TH/MM3 Mean Platelet Volume 7.9 FL Neutrophils (%) (Auto) 67.2 % Lymphocytes (%) (Auto) 23.3 % Monocytes (%) (Auto) 6.8 % Eosinophils (%) (Auto) 2.1 % Basophils (%) (Auto) 0.6 % Neutrophils # (Auto) 6.2 TH/MM3 Lymphocytes # (Auto) 2.1 TH/MM3 Monocytes # (Auto) 0.6 TH/MM3 Eosinophils # (Auto) 0.2 TH/MM3 Basophils # (Auto) 0.1 TH/MM3 CBC Comment DIFF FINAL Differential Comment Blood Urea Nitrogen 28 MG/DL Creatinine 0.92 MG/DL Random Glucose 75 MG/DL Total Protein 7.1 GM/DL Albumin 3.7 GM/DL Calcium Level 8.7 MG/DL Magnesium Level 2.5 MG/DL Alkaline Phosphatase 58 U/L Aspartate Amino Transf (AST/SGOT) 25 U/L Alanine Aminotransferase (ALT/SGPT) 40 U/L Total Bilirubin 0.6 MG/DL Sodium Level 142 MEQ/L Potassium Level MEQ/L Chloride Level 108 MEQ/L Carbon Dioxide Level 24.4 MEQ/L Anion Gap 10 MEQ/L Estimat Glomerular Filtration Rate 84 ML/MIN [facility] Medical Decision Making Medical Screen Exam Complete: Yes Emergency Medical Condition: Yes Medical Record Reviewed: Yes Interpretation(s) Last Impressions Lower Extremity Ultrasound 08/30/17 0000 Signed Impressions: CONCLUSION: 1. Negative study. No venous thrombosis of the left lower extremity. CBC & BMP Diagram 08/30/17 14:30 Total Protein 7.1, Albumin 3.7, Calcium Level 8.7, Magnesium Level 2.5, Alkaline Phosphatase 58, Aspartate Amino Transf (AST/SGOT) 25, Alanine Aminotransferase (ALT/SGPT) 40, Total Bilirubin 0.6 Differential Diagnosis DVT versus calf pain versus edema Narrative Course 61-year-old male that presents to the ED for evaluation of left calf pain. Patient was properly examined and was found to have signs and symptoms concerning for DVT. Imaging order. Imaging showed no sign of acute disease. More was done to rule out any sign of anything else. Lower was essentially unremarkable. Patient was reassured. Will patient was waiting to get the results back he put his foot up and his swelling went away. Presume that this may be related to possible muscle strain versus pedal edema. Patient does tell me that he had a charley horse overnight a couple of nights ago and then that is when the swelling started. Possibly injured it at that time. His exam is benign. There is no sign of infection or abscess. Recommendation is transfer anti-inflammatories elevation and compression stocking. Follow-up with PCP. See ED worsening symptoms. Diagnosis Primary Impression: Pain of left calf Additional Impressions: Edema Qualified Codes: R60.9 - Edema, unspecified Muscle strain Patient Instructions: General Instructions Additional Instructions: Take medication as prescribed. His compression stocking on the left leg. Follow-up with PCP. See ED if worsening symptoms. Ice or warm compresses. Elevate the leg. Med/Other Pt SpecificInfo: Prescription(s) given Scripts Diclofenac Sodium DR (Diclofenac Sodium DR) 75 Mg Tabdr 75 MG PO BID Y for PAIN SCALE 1 TO 10, #20 TAB 0 Refills Prov: Rolf Kenny MD 08/30/17 Disposition: 01 DISCHARGE HOME Condition: Stable Cy Gutierrez Aug 30, 2017 12:40
--- NOTE | 2017-08-30 15:02 | RADRPT ---
EXAM DATE: 08/30/2017 2:59 PM EDT AGE/SEX: 61 years / Male INDICATIONS: Left calf pain. CLINICAL DATA: This is the patient's initial encounter. Patient reports that signs and symptoms have been present for 1 week and indicates a pain score of 5/10. MEDICAL/SURGICAL HISTORY: . [place]. Hypertension. GERD. . Cardiac stent. Cardiac catheterizatio n. COMPARISON: No prior [place] exams available for comparison. No external comparison. TECHNIQUE: Venous ultrasound of both lower extremities was performed from the inguinal ligament to t he proximal calf. Real-time, color Doppler and spectral tracing, compression and augmentation techni ques were used. FINDINGS: There is normal compressibility of the deep venous system from the inguinal region to the proximal ca lf. No echogenic clot is seen in the lumen of the common femoral, femoral, popliteal, and posterior tibial veins. There is a normal response of the venous system to proximal and distal augmentation an d respiration. CONCLUSION: 1. Negative study. No venous thrombosis of the left lower extremity. Electronically signed by: Dylon Aguilar MD 08/30/2017 3:01 PM EDT
[2017-08-30 15:07] VITALS: BP 137/78; PULSE 60; RESP 18; O2SAT 99
[2017-08-30 15:13] LABS: AUTOMATED NEUTROPHIL # 6.2 TH/MM3 (1.8-7.7); BASOPHIL # 0.1 TH/MM3 (0-0.2); BASOPHIL % 0.6 % (0.0-2.0); EOSINOPHIL # 0.2 TH/MM3 (0-0.4); EOSINOPHIL % 2.1 % (0.0-4.0); HEMATOCRIT 40.8 % (39.0-51.0); HEMOGLOBIN 13.7 GM/DL (13.0-17.0); LYMPH % 23.3 % (9.0-44.0); LYMPHOCYTE # 2.1 TH/MM3 (1.0-4.8); MEAN CELL VOLUME 95.3 FL (80.0-100.0); MEAN CORPUSCULAR HEMOGLOBIN 32.1 PG (27.0-34.0); MEAN CORPUSCULAR HGB CONC 33.7 % (32.0-36.0); MEAN PLATELET VOLUME 7.9 FL (7.0-11.0); MONO % 6.8 % (0.0-8.0); MONOCYTE # 0.6 TH/MM3 (0-0.9); NEUT % 67.2 % (16.0-70.0); PLATELET COUNT 257 TH/MM3 (150-450); RED BLOOD COUNT 4.28 MIL/MM3 (4.50-5.90); RED CELL DISTRIBUTION WIDTH 14.2 % (11.6-17.2); WHITE BLOOD COUNT 9.2 TH/MM3 (4.0-11.0)
[2017-08-30 15:48] LABS: ALKALINE PHOSPHATASE 58 U/L (45-117); TOTAL BILIRUBIN ADULT 0.6 MG/DL (0.2-1.0); TOTAL PROTEIN 7.1 GM/DL (6.4-8.2)
[2017-08-30 15:54] LABS: ALBUMIN 3.7 GM/DL (3.4-5.0); ALT (GPT) 40 U/L (12-78); AST (GOT) 25 U/L (15-37); BICARBONATE 24.4 MEQ/L (21.0-32.0); BLOOD UREA NITROGEN 28 MG/DL (7-18); CALCIUM 8.7 MG/DL (8.5-10.1); CHLORIDE 108 MEQ/L (98-107); CREATININE 0.92 MG/DL (0.60-1.30); GLOMERULAR FILTRATION RATE 84 ML/MIN (>89); GLUCOSE,RANDOM 75 MG/DL (74-106); MAGNESIUM 2.5 MG/DL (1.5-2.5); SODIUM (NA) 142 MEQ/L (136-145)
[2017-08-30] MEDS ORDERED: DICL75TA PO (16:07)
== END 2017-08-30 16:37 | disposition home or self-care (01) ==
LOC: NEPE 11:54
DX: M79.662 Pain in left lower leg (principal); E78.00 Pure hypercholesterolemia, unspecified; I10 Essential (primary) hypertension; Z79.899 Other long term (current) drug therapy
CPT/HCPCS: 80053; 83735; 85025; 87040; 87205; 93971